=== PATIENT | male | born 1955 | race African-American/Black ===

== ENCOUNTER 2017-12-13 23:57 | Emergency (ER) | payer OTHER ==
[2017-12-14 02:50] VITALS: BP 123/88
== END 2017-12-14 02:50 | disposition home or self-care (01) ==
LOC: ED 23:57
DX: S43.015A Anterior dislocation of left humerus, initial encounter (principal); Z98.890 Other specified postprocedural states; X58.XXXA Exposure to other specified factors, initial encounter; Y93.89 Activity, other specified; Y92.89 Other specified places as the place of occurrence of the external cause; Y99.8 Other external cause status
CPT/HCPCS: J2704

== ENCOUNTER 2017-12-18 13:20 | Emergency (ER) | payer OTHER ==
[2017-12-18 16:56] VITALS: BP 107/79
== END 2017-12-18 16:56 | disposition home or self-care (01) ==
LOC: ED 13:20
DX: S39.012A Strain of muscle, fascia and tendon of lower back, initial encounter (principal); S16.1XXA Strain of muscle, fascia and tendon at neck level, initial encounter; S29.011A Strain of muscle and tendon of front wall of thorax, initial encounter; X58.XXXA Exposure to other specified factors, initial encounter; Y93.89 Activity, other specified; Y99.8 Other external cause status; Y92.89 Other specified places as the place of occurrence of the external cause
CPT/HCPCS: J1885

== ENCOUNTER 2018-01-19 22:14 | Emergency (ER) | payer OTHER ==
[~2018-01-19] VITALS: Ht 172.7 cm; Wt 76.2 kg
[2018-01-19 22:29] VITALS: Ht 172.7 cm; Wt 76.2 kg
[2018-01-20 03:37] VITALS: BP 120/75
== END 2018-01-20 03:37 | disposition home or self-care (01) ==
LOC: ED 22:14
DX: B34.9 Viral infection, unspecified (principal); R56.9 Unspecified convulsions
CPT/HCPCS: 87804

== ENCOUNTER 2018-11-13 16:13 | Emergency (ER) | payer OTHER ==
[~2018-11-13] VITALS: Ht 172.7 cm; Wt 74.4 kg
[2018-11-13 16:40] VITALS: Ht 172.7 cm; Wt 74.4 kg
[2018-11-13 17:34] VITALS: BP 122/77
== END 2018-11-13 17:34 | disposition home or self-care (01) ==
LOC: ED 16:13
DX: T15.12XA Foreign body in conjunctival sac, left eye, initial encounter (principal); X58.XXXA Exposure to other specified factors, initial encounter; Y93.89 Activity, other specified; Y92.89 Other specified places as the place of occurrence of the external cause; Y99.8 Other external cause status